=== PATIENT | male | born 1980 | race Two or more races ===

== ENCOUNTER 2016-04-27 10:43 | Emergency (ER) | payer MEDICAID ==
[~2016-04-27] VITALS: Ht 180.3 cm; Wt 95.3 kg
[2016-04-27 11:35] VITALS: BP 120/70
== END 2016-04-27 12:14 | disposition home or self-care (01) ==
LOC: ER 10:43
DX: J02.9 Acute pharyngitis, unspecified (principal); H66.93 Otitis media, unspecified, bilateral; J45.909 Unspecified asthma, uncomplicated

== ENCOUNTER 2016-09-15 10:49 | Emergency (ER) | payer MEDICAID ==
[~2016-09-15] VITALS: Ht 180.3 cm; Wt 136.1 kg
[2016-09-15 11:01] VITALS: BP 122/76
== END 2016-09-15 11:56 | disposition home or self-care (01) ==
LOC: ER 10:49
DX: H66.91 Otitis media, unspecified, right ear (principal); J45.909 Unspecified asthma, uncomplicated; R42 Dizziness and giddiness; M54.2 Cervicalgia; E66.9 Obesity, unspecified; Z68.41 Body mass index [BMI] 40.0-44.9, adult

== ENCOUNTER 2016-09-29 11:26 | Emergency (ER) | payer MEDICAID ==
[~2016-09-29] VITALS: Ht 180.3 cm; Wt 127.0 kg
[2016-09-29 11:50] VITALS: BP 136/93
== END 2016-09-29 12:15 | disposition home or self-care (01) ==
LOC: ER 11:26
DX: H66.93 Otitis media, unspecified, bilateral (principal); J45.909 Unspecified asthma, uncomplicated; R09.81 Nasal congestion

== ENCOUNTER 2018-03-30 15:00 | Emergency (ER) | payer MEDICAID ==
[~2018-03-30] VITALS: Ht 180.3 cm; Wt 136.1 kg
[2018-03-30] MEDS ORDERED: MORPHINE SULFATE 10 MG/ML INJ 1ML SDV IV ONE (15:15)
[2018-03-30] MEDS ORDERED: ONDANSETRON HCL 4 MG/2 ML VIAL IV ONE (15:15)
[2018-03-30] MEDS ORDERED: SODIUM CHLORIDE 0.9% 500 ML IVB ONE (15:15)
[2018-03-30 15:31] LABS: Basophils # (auto) 0.1 uL; Basophils % (auto) 0.7 % (0.0-2.0); Eosinophils # (auto) 0.1 uL; Eosinophils % (auto) 1.1 % (0.0-7.0); Hematocrit 47.5 % (41.0-53.0); Hemoglobin 16.3 g/dL (13.5-17.5); Lymphocytes # (auto) 2.1 uL; Lymphocytes % (auto) 18.3 % (10.0-50.0); Mean Corpuscular Hgb Conc. 34.3 g/dL (32.0-36.0); Mean Corpuscular Volume 90.3 fL (80.0-100.0); Monocytes # (auto) 1.3 uL; Monocytes % (auto) 10.7 % (0.0-12.0); Neutrophils # (auto) 8.1 uL; Neutrophils % (auto) 69.2 % (37.0-80.0); Platelet Count (auto) 282 10^3/uL (140-450); Red Blood Cells 5.26 10^6/uL (4.5-5.90); Red Cell Distribution Width 13.9 % (11.8-14.3); White Blood Cell 11.7 10^3/uL (4.4-10.8)
[2018-03-30 16:05] LABS: Urine Bacteria NONE SEEN /hpf (None Seen); Urine Blood Negative /uL (Negative); Urine Mucus FEW (None Seen); Urine WBC 1 /hpf (0 - 3)
[2018-03-30 16:06] LABS: Albumin 3.9 g/dL (3.4-5.0); Anion Gap 4 (5-15); Blood Urea Nitrogen 7 mg/dL (7-18); Calcium 8.7 mg/dL (8.5-10.1); Carbon Dioxide 30 mmol/L (21-32); Chloride 106 mmol/L (98-107); Glucose 80 mg/dL (74-106); Potassium 3.8 mmol/L (3.5-5.1); Sodium 140 mmol/L (136-145)
[2018-03-30 16:09] LABS: Alanine Aminotransferase 77 U/L (16-61); Alkaline Phosphatase 78 U/L (45-117); Aspartate Aminotransferase 23 U/L (15-37); BUN/Creatinine Ratio 6.8; GFR African American > 60 mL/min; GFR Non-African American > 60 mL/min; Total Protein 7.5 g/dL (6.4-8.2)
[2018-03-30] MEDS ORDERED: metroNIDAZOLE 500MG/100ML 100 ML IV ONE (16:15)
[2018-03-30 18:46] VITALS: BP 108/77
== END 2018-03-30 20:39 | disposition left against medical advice (07) ==
LOC: ER 15:24
DX: K57.92 Diverticulitis of intestine, part unspecified, without perforation or abscess without bleeding (principal); J45.909 Unspecified asthma, uncomplicated; E78.5 Hyperlipidemia, unspecified; Z90.49 Acquired absence of other specified parts of digestive tract
CPT/HCPCS: 36415; 74176; 80053; 81001; 83690; 85025; 94761; 96365; 96375; 99284; J2270; J2405; J3490